=== PATIENT | male | born 2000 | race Caucasian/White ===

== ENCOUNTER 2018-10-24 22:07 | Emergency (ER) | payer MEDICAID ==
[~2018-10-24] VITALS: Ht 172.7 cm; Wt 69.9 kg
[2018-10-24 22:13] VITALS: BP 152/76
--- NOTE | 2018-10-24 22:17 | NUR ---
Pt taken to bed 10 accompanied by mother.
--- NOTE | 2018-10-24 22:35 | NUR ---
PT BIB MOTHER C/O COUGHING X2 WEEKS, WHEEZING AND CHILL X2 DAYS. PT STATES MUCOUS "YELLOWISH" IN COLOR AFTER COUGHING. LUNG SOUND CLEAR, BREATHING EQUAL AND UNLABORED. PT STATES 0/10 PAIN AT THIS TIME. PT SPEAKING IN CLEAR AND COMPLETE SENTENCES. SAFETY PRECAUTION IN PLACE. PENDING ER MD BARRETO. PMH: DENIES
--- NOTE | 2018-10-24 22:50 | NUR ---
DR. SNOW AT BEDSIDE FOR EVALUATION.
[2018-10-24] MEDS ORDERED: ALBUTEROL SULFATE/IPRATROPIU 3 ML SOL IH ONE (22:55)
[2018-10-24 23:35] VITALS: BP 128/74
== END 2018-10-24 23:35 | disposition home or self-care (01) ==
LOC: MED 22:07
DX: J20.9 Acute bronchitis, unspecified (principal)
CPT/HCPCS: 71045; 94640; 99283; J7620; Q0092